=== PATIENT | female | born 1995 | race Caucasian/White ===

== ENCOUNTER 2022-06-22 08:07 | Emergency (ER) | payer OTHER ==
[~2022-06-22] VITALS: Ht 162.6 cm; Wt 73.0 kg
[2022-06-22 08:17] VITALS: BP 120/80
[2022-06-22 11:09] LABS: BASOPHILS % 0.2 % (0.0-2.0); EOSINOPHILS % 0.5 % (0.0-5.0); HEMATOCRIT. 40.3 % (36.0-48.0); HEMOGLOBIN. 13.5 g/dL (12.0-16.0); LYMPHOCYTES % 11.7 % (20.0-50.0); MEAN CORPUSCULAR VOLUME 86.9 fL (81.0-99.0); MEAN PLATELET VOLUME 10.1 fl (7.4-10.4); MONOCYTES % 6.6 % (2.0-8.0); PLATELET 262 x1000/uL (130-400); RED BLOOD CELL COUNT 4.64 mill/uL (4.2-5.4); RED CELL DISTRIBUTION WIDTH 12.9 % (11.6-14.6)
[2022-06-22 11:16] LABS: PROTHROMBIN TIME 10.5 sec (9.6-11.0)
[2022-06-22 11:38] LABS: CHLORIDE 106 mEq/L (98-107)
[2022-06-22 12:05] LABS: CLARITY URINE HAZY (CLEAR); COLOR URINE YELLOW (YELLOW)
[2022-06-22 12:06] LABS: KETONES URINE 1+ (NEGATIVE); LEUKOCYTE ESTERASE URINE 2+ (NEGATIVE); NITRITE URINE NEGATIVE (NEGATIVE); OCCULT BLOOD URINE 3+ (NEGATIVE); PROTEIN URINE 1+ (NEGATIVE); UROBILINOGEN URINE 0.2 E.U./dL (0.2-1.0)
[2022-06-22 12:08] LABS: SPECIFIC GRAVITY URINE 1.018 (1.005-1.030)
[2022-06-22 13:03] LABS: HCG SCREEN NEGATIVE
[2022-06-22] MEDS ORDERED: NITR100C PO (13:05)
== END 2022-06-22 13:19 | disposition left against medical advice (07) ==
LOC: ER 08:07
DX: N39.0 Urinary tract infection, site not specified (principal)
CPT/HCPCS: 36415; 80053; 81003; 81025; 84703; 85025; 87077; 87186; 99283